=== PATIENT | female | born 1965 | race Caucasian/White ===

== ENCOUNTER 2017-04-23 00:11 | Day surgery (SDC) | payer MEDICARE, MEDICAID ==
[~2017-04-23] VITALS: Ht 157.5 cm; Wt 48.5 kg
[~2017-04-23 00:11] MED LIST: ACET500T68 PO; AMOX-362 PO; AMOX500T10 PO; BACOUD TP; CALC-634 PO; CALC-707 PO; CALC1TAB17 PO; CALC1TAB58 PO; CARB15DR70 OP; CLIN40GE2 TP; DESO1TAB32 PO; DESO1TAB41 PO; DULO60CA51 PO; DULO60CA56 PO; EMOL454O TOP; ESOM40CA42 PO; GOLYTE PO; GUAI-244 PO; HYDR28.415 TP; HYDR28.425 TOP; IBUP200C71 PO; IBUP600T22 PO; LOPE-109 PO; LOPE-84 PO; LORA-629 PO; LORA-787 PO; LOVAZA1PT GT; MAGN1TAB2 PO; MENT118G TD; MENT118G TOP; MET70GEL PV; METR45CR9; NAPR-744 PO; OMEG1CAP60; PAN40 PO; PHEN200T32 PO; POLPT TP; SULF-198 PO; TRAZ-156 PO; TRIA10PO9 MC; TRIC1BAR TP; VITA-200 PO; [UNRECOGNIZED DRUG - CODE] TP; [UNRECOGNIZED DRUG - OTHER] PO
[2017-04-23 06:09] VITALS: BP 117/86
[2017-04-23] MEDS ORDERED: NORMOSOL R SOLN(*) 1000 ML BAG 1,000 ML IV PRN (06:30)
[2017-04-23] MEDS ORDERED: MIDAZOLAM 2 MG/2 ML VIAL IVP PRN (06:30)
[2017-04-23] MEDS ORDERED: LIDOCAINE/SOD BICARB 8.4% SYR ID ONE (06:30)
[2017-04-23] MEDS ORDERED: LIDOCAINE MPF 1% 5 ML VIAL ONE (06:51)
[2017-04-23] MEDS ORDERED: PROPOFOL EMUL(*) 10MG/ML 20 ML 60 ML ONE (06:51)
[2017-04-23 07:52] VITALS: BP 107/72
[2017-04-23 08:00] VITALS: BP 94/61
--- NOTE | 2017-04-23 08:00 | Short(Outpt) Discharge Summary ---
Discharge Summary Reason for Hosp/Final Diag: (1) Colon cancer screening Status: Chronic Hospital Course & Plan: Colonoscopy completed without problems. Departure Discharge to: Assisted Living Discharge Instructions Home Meds Active Scripts Multivits-Min/Fa/Lycopene/Lut (COMPLETE MULTI 50+ TABLET) 1 Each Tablet, 1 EACH PO QDAY, #90 TAB 4 Refills Prov:DOMONIQUE WINTER MD 04/10/17 Peg/Electrolytes (GOLYTELY SOLUTION) 4,000 Ml Soln, 1 GAL PO ONCE, #1 GAL 0 Refills Prov:CATRACHITO GARCIA MD 02/11/17 Loratadine (LORATADINE) 10 Mg Tablet, 10 MG PO QDAY Y for ALLERGY SYMPTOMS, #90 TAB 2 Refills Prov:DOMONIQUE WINTER MD 01/27/17 Calcium Carbonate/Vitamin D3 (CALCIUM 600 + VIT D 400 TABLET) 1 Each Tablet, 1 TAB PO QDAY, #90 TAB 3 Refills Prov:DOMONIQUE WINTER MD 01/06/17 Reported Medications Erythromycin/Benzoyl Peroxide (ERYTHROMYCIN-BENZOYL GEL) 23.3 Gm Gel..gram., 23.3 GM TP 04/16/17 Triclosan (CETAPHIL) 1 Each Bar, 1 EACH TP DAILY 04/16/17 Menthol (BIOFREEZE) 118 Ml Gel..ml., 1 MARYURI TOP PRN 04/16/17 Bacitracin/Polymyxin (BACITRACIN-POLYMYXIN OINTMENT) 0.9 Gm Oint, 0.9 GM TP DAILY 04/16/17 Emollient Combination No.97 (Aquaphilic) 454 Gm Oint...g., 1 MARYURI TOP DAILY 04/16/17 Loperamide Hcl (ANTI-DIARRHEAL) 2 Mg Capsule, 2 MG PO PP, CAPSULE 04/16/17 Magnesium Carbonate/Al Hydrox (ANTACID EXTRA STRENGTH CHW TAB) 1 Each Tab.chew, 2 EACH PO DAILY, TAB.CHEW 04/16/17 Amoxicillin 500 Mg Tab (AMOXICILLIN 500 MG TAB) 500 Mg Tablet, 4 TAB PO DIRECTED, TAB 04/16/17 Acetaminophen (TYLENOL EXTRA STRENGTH) 500 Mg Tablet, 500 MG PO Q4-6H, TAB 04/16/17 Calcium/Mineral/D3/K2/Silicon (ADVANCED CALCIUM FORMULA TAB) 1 Each Tablet, 1 EACH PO DAILY 04/16/17 [place]-3 Acid Ethyl Esters ([place]-3 Acid Ethyl Esters) 1 Gm Capsule 01/02/17 Metronidazole (METRONIDAZOLE) 45 Gm Cream..g. 01/02/17 Trazodone Hcl (TRAZODONE HCL) 50 Mg Tablet, 50 MG PO QHS 10/01/16 Esomeprazole Magnesium (NEXIUM) 40 Mg Capsule.dr, 1 CAP PO QDAY TAKE ONE CAPSULE BY MOUTH EVERY DAY 10/04/13 Ibuprofen (IBUPROFEN) 200 Mg Capsule, 2 CAP PO Q6-8H Y for PAIN, CAPSULE 10/04/13 Hydrocortisone/Aloe Vera (HYDROCORTISONE 1% OINTMENT) 28 Gm Oint...g., 28 GM TP PRN Y for ITCHING 10/04/13 Duloxetine Hcl (CYMBALTA) 60 Mg Capsule.dr, 60 MG PO QDAY, #5 CAP TAKE 1 CAPSULE BY MOUTH EVERY DAY 10/04/13 Discontinued Reported Medications Hydrocortisone (Hydrocortisone) 1 % Cream..g., 1 MARYURI TOP 04/16/17 Desogestrel-Ethinyl Estradiol (RECLIPSEN) 1 Each Tablet, 1 EACH PO QDAY 10/04/13 Diet: Regular Activity: As Tolerated Special Instructions: Your colonoscopy was completed without any problems and your prep was excellent (Good Job!!). Your colon looked completely normal, no polyps, cancers, or other abnormalities. I recommend another colonoscopy in 10 years for screening. CATRACHITO GARCIA MD Apr 23, 2017 07:59
[2017-04-23 08:30] VITALS: BP 114/84
[2017-04-23 08:33] VITALS: BP 106/76
[2017-04-23 08:34] VITALS: BP 109/79
== END 2017-04-23 08:48 | disposition home or self-care (01) ==
LOC: OR 00:11
PROVIDERS: ATTEND Surgery
DX: Z12.11 Encounter for screening for malignant neoplasm of colon (principal)
CPT/HCPCS: 00812; G0121; J2001; J2704

== ENCOUNTER → 2017-06-30 | Outpatient (CLI) | payer MEDICARE, MEDICAID ==
[~2017-06-30] MED LIST changes: -CARB15DR70 OP; +CARB15DR72 OP; +MIRT7.5T2 PO; +MULT1TAB77 PO; +OMEG1CAP60 PO
[2017-06-30 11:02] LABS: PLATELET COUNT, AUTOMATED 235 K/uL (150-450)
== END ==
LOC: LAB 10:33
PROVIDERS: ATTEND Internal Medicine
DX: Q90.9 Down syndrome, unspecified (principal); I34.1 Nonrheumatic mitral (valve) prolapse; Z86.79 Personal history of other diseases of the circulatory system; R63.4 Abnormal weight loss; R71.8 Other abnormality of red blood cells
CPT/HCPCS: 36415; 81001; 82040; 82247; 82310; 82374; 82435; 82565; 82607; 82746; 82947; 84075; 84132; 84155; 84295; 84443; 84450; 84460; 84520; 85025

== ENCOUNTER → 2017-11-21 | Outpatient (CLI) | payer MEDICARE, MEDICAID ==
[~2017-11-21] MED LIST changes: +IBUP-136 PO; -IBUP200C71 PO; -TRAZ-156 PO; +TRAZ50TA34 PO
--- NOTE | 2017-11-21 10:42 | RADIOLOGY IMAGING REPORT ---
FACILITY: [facility] [place] PATIENT NAME: JESS WARD : [id number] MR: [id number] V: [id number] EXAM DATE: [id number] ORDERING PHYSICIAN: RICHARD COTTER TECHNOLOGIST: Odette Jones PROCEDURE:BILATERAL DIGITAL SCREENING MAMMOGRAM WITH CAD ASSISTED INTERPRETATION & 3D TOMOSYNTHESIS COMPARISON:Prior mammograms 11/20/16, 11/20/15, 11/17/14, 11/09/13, 11/04/12, 11/04/11. INDICATIONS:SCREENING FINDINGS: A small amount of fibroglandular tissue is seen throughout the breasts. The parenchymal pattern has remained stable allowing for difference in mammographic technique & patient positioning. There is no evidence of malignant appearing mass, malignant appearing calcifications or other secondary sign of malignancy in either breast. Pacemaker generator projects over the superior posterior aspect Left breast on the Left MLO view. DIAGNOSTIC CATEGORY 1--NEGATIVE. RECOMMENDATIONS: ROUTINE MAMMOGRAM AND CLINICAL EVALUATION. IMPRESSION: BIRADS 1: Negative. No significant abnormality is seen. Dictated by: Shantel Singh M.D. on 11/21/2017 at 10:26 Transcribed by: RENAN on 11/21/2017 at 10:33 Approved by: Shantel Singh M.D. on 11/21/2017 at 10:41 [facility]
== END ==
LOC: MAMO 02:33
PROVIDERS: ATTEND Family Medicine
DX: Z12.31 Encounter for screening mammogram for malignant neoplasm of breast (principal); Z95.0 Presence of cardiac pacemaker
CPT/HCPCS: 77063; 77067

== ENCOUNTER 2018-06-23 09:38 | Emergency (ER) | payer MEDICARE, MEDICAID ==
[~2018-06-23 09:38] MED LIST changes: +CLIN30GE15 TP; +METR45CR10 TP
[2018-06-23] MEDS ORDERED: ICOS1CAP (09:54)
[2018-06-23] MEDS ORDERED: MU V (09:54)
[2018-06-23] MEDS ORDERED: CARB15DR74 (09:54)
--- NOTE | 2018-06-23 10:00 | ER Report ---
History and Physical Time Seen By MD: 09:55 Hx. of Stated Complaint: Pt. having right knee pain with swelling, pain with walking. Pain and swelling started last night. Unknown if patient fell or not. 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 Caregiver providing history. HPI/ROS CHIEF COMPLAINT: Right knee swelling and pain HISTORY OF PRESENT ILLNESS: Patient is a resident of the [facility]; she is brought in by caregiver secondary to some right knee pain and swelling. Patient did receive acetaminophen earlier this morning. It is unclear whether the patient actually had a fall as patient is somewhat of a poor historian. No fevers or chills noted no other complaints. Allergies: Coded Allergies: No Known Drug Allergies (Verified , 06/23/18) Home Meds Active Scripts [place]-3 Acid Ethyl Esters ([place]-3 Acid Ethyl Esters) 1 Gm Capsule, 1 CAP PO BID MDD 2, #90 CAP 4 Refills Prov:DOMONIQUE WINTER MD 03/13/18 Clindamycin Phosphate (CLINDAMYCIN PHOSPHATE) 30 Gm Gel..gram., 1 MARYURI TP DAILY for 30 Days, #1 TUBE 2 Refills Prov:LINDA DE LA GARZA NPC 01/08/18 Metronidazole (METROCREAM) 45 Gm Cream..g., 1 MARYURI TP BID for 30 Days, #1 TUBE 3 Refills Prov:LINDA DE LA GARZA NPC 01/08/18 Esomeprazole Magnesium (NEXIUM) 40 Mg Capsule.dr, 1 CAP PO QDAY, #90 CAP 3 Refills TAKE ONE CAPSULE BY MOUTH EVERY DAY Prov:DOMONIQUE WINTER MD 12/19/17 Mirtazapine (MIRTAZAPINE) 7.5 Mg Tablet, 7.5 MG PO QDAY, #30 TAB 6 Refills Prov:DOMONIQUE WINTER MD 06/30/17 Loratadine (LORATADINE) 10 Mg Tablet, 10 MG PO QDAY PRN for ALLERGY SYMPTOMS, #90 TAB 2 Refills Prov:DOMONIQUE WINTER MD 01/27/17 Calcium Carbonate/Vitamin D3 (CALCIUM 600 + VIT D 400 TABLET) 1 Each Tablet, 1 TAB PO QDAY, #90 TAB 3 Refills Prov:DOMONIQUE WINTER MD 01/06/17 Reported Medications Icosapent Ethyl (VASCEPA) 1 Gm Capsule 06/23/18 Mu-Vits-Min Th/Lycopene/Lutein (A THRU Z SELECT 50+ FORMULA TB) 1 Each Tablet 06/23/18 Carboxymethylcellulos/Glycerin (REFRESH OPTIVE EYE DROPS) 15 Ml Drops 06/23/18 Emollient Combination No.97 (Aquaphilic) 454 Gm Oint...g., 1 MARYURI TOP DAILY 04/16/17 Duloxetine Hcl (CYMBALTA) 60 Mg Capsule.dr, 30 MG PO QDAY, #5 CAP TAKE 1 CAPSULE BY MOUTH EVERY DAY 10/04/13 Discontinued Reported Medications Erythromycin/Benzoyl Peroxide (ERYTHROMYCIN-BENZOYL GEL) 23.3 Gm Gel..gram., 23.3 GM TP 04/16/17 Bacitracin/Polymyxin (BACITRACIN-POLYMYXIN OINTMENT) 0.9 Gm Oint, 0.9 GM TP DAILY 04/16/17 Amoxicillin 500 Mg Tab (AMOXICILLIN 500 MG TAB) 500 Mg Tablet, 4 TAB PO DIRECTED, TAB 04/16/17 Acetaminophen (TYLENOL EXTRA STRENGTH) 500 Mg Tablet, 500 MG PO Q4-6H, TAB 04/16/17 Calcium/Mineral/D3/K2/Silicon (ADVANCED CALCIUM FORMULA TAB) 1 Each Tablet, 1 EACH PO DAILY 04/16/17 Discontinued Scripts Multivitamin/Iron/Folic Acid (A THRU Z ADVANCED FORMULA TAB) 1 Each Tablet, 1 EACH PO DAILY, #90 TAB 2 Refills Prov:LINDA DE LA GARZA NPC 03/09/18 Past Medical/Surgical History Noncontributory towards this chief complaints. Hx Smoking: No Smoking Status: Never Smoker Exposure to Second Hand Smoke?: No Hx Substance Use Disorder: No Hx Alcohol Use: No Constitutional Vital Sign - Last 24 Hours 06/23/18 06/23/18 06/23/18 06/23/18 09:42 09:45 09:48 09:53 Temp 98.4 Pulse 80 69 70 Resp 16 B/P (MAP) 137/78 137/78 (97) Pulse Ox 96 94 97 O2 Delivery Room Air 06/23/18 06/23/18 06/23/18 06/23/18 09:58 10:00 10:03 10:23 Pulse 70 70 71 B/P (MAP) 120/77 (91) Pulse Ox 94 94 92 06/23/18 06/23/18 06/23/18 06/23/18 10:28 10:30 10:33 10:38 Pulse 70 70 70 B/P (MAP) 117/74 (88) Pulse Ox 91 91 90 06/23/18 10:43 Pulse 70 Pulse Ox 90 Physical Exam General appearance: Alert no distress. Right knee: There is no mild joint swelling swelling. There is no effusion. No overlying erythema There is no obvious deformity of the knee. There is no tenderness to the patella. The joint is stable with no comparable ligamentous laxity to the knee. There is no tenderness proximal or distal to the knee. Neurologic exam: The patient has normal sensation distal to the injury. Vascular exam: Normal pulses and capillary refill in the foot [ ] DIFFERENTIAL DIAGNOSIS: After history and physical exam differential diagnosis was considered for knee injury including sprain, fracture, meniscus injury and soft tissue injury. Medical Decision Making EKG/Imaging Imaging FACILITY: [facility] PATIENT NAME: Lyudmila Summers : 1965 MR: [id number] V: [id number] EXAM DATE: ORDERING PHYSICIAN: KASIE RAMÍREZ TECHNOLOGIST: Location[place] [facility] [place] Patient: Lyudmila Summers : 1965 Visit/Account:[id number] Date of Sevice: 06/23/2018 KNEE 3 VIEW RIGHT Given history: swelling COMPARISON STUDIES: NONE FINDINGS: Osseous structures: Intact without evidence of fracture . Joints: Joint spaces well-maintained. However, there are small osteophytes in the femoral patellar and medial compartments minimally changed from 2016. There is been interval development of several additional intra-articular loose bodies in the posterior aspect of the joint. Calcification seen just medial to the tibial plateau might represent calcification or adjacent loose body by the medial collateral ligament. Soft tissues: There is a large suprapatellar joint effusion. Joint effusion is also seen in 2016. IMPRESSION: Moderate arthropathy with several intra-articular loose bodies . Accompanying joint effusion. Report Dictated By: Anam Mccauley MD at 06/23/2018 10:24 AM Report E-Signed By: Anam Mccauley MD at 06/23/2018 10:27 AM ED Course/Re-evaluation ED Course Plan at this time will be to perform x-ray of the right knee. Decision to Disposition Date: Jun 23, 2018 Decision to Disposition Time: 10:42 Depart Departure Latest Vital Signs Vital Signs Date Time Temp Pulse Resp B/P (MAP) Pulse Ox O2 Delivery O2 Flow Rate FiO2 06/23/18 10:43 70 90 06/23/18 10:30 117/74 (88) 06/23/18 09:42 98.4 16 Room Air Impression: Primary Impression: Arthritis Condition: Improved Disposition: HOME OR SELF-CARE Referrals: [facility] Make an appointment for further evaluation of knee swelling Patient Instructions: Arthritis (GEN), Knee Pain (ED) KASIE RAMÍREZ MD Jun 23, 2018 10:00
[2018-06-23 10:30] VITALS: BP 117/74
--- NOTE | 2018-06-23 10:31 | RADIOLOGY IMAGING REPORT ---
FACILITY: [facility] PATIENT NAME: Lyudmila Summers : 1965 MR: [id number] V: [id number] EXAM DATE: ORDERING PHYSICIAN: KASIE RAMÍREZ TECHNOLOGIST: Location: [facility] Patient: Lyudmila Summers : 1965 Visit/Account:[id number] Date of Sevice: 06/23/2018 KNEE 3 VIEW RIGHT Given history: swelling COMPARISON STUDIES: NONE FINDINGS: Osseous structures: Intact without evidence of fracture . Joints: Joint spaces well-maintained. However, there are small osteophytes in the femoral patellar and medial compartments minimally changed from 2016. There is been interval development of several additional intra-articular loose bodies in the posterior aspect of the joint. Calcification seen just medial to the tibial plateau might represent calcification or adjacent loose body by the medial collateral ligament. Soft tissues: There is a large suprapatellar joint effusion. Joint effusion is also seen in 2016. IMPRESSION: Moderate arthropathy with several intra-articular loose bodies . Accompanying joint effusion. Report Dictated By: Anam Mccauley MD at 06/23/2018 10:24 AM Report E-Signed By: Anam Mccauley MD at 06/23/2018 10:27 AM WSN:GEO
== END 2018-06-23 11:04 | disposition home or self-care (01) ==
LOC: ER 09:59
DX: M17.11 Unilateral primary osteoarthritis, right knee (principal)
CPT/HCPCS: 99283

== ENCOUNTER → 2018-07-22 | Outpatient (CLI) | payer MEDICARE, MEDICAID ==
[~2018-07-22] MED LIST changes: +CARB15DR74; +ICOS1CAP; +MU V
== END ==
LOC: US 00:29
PROVIDERS: ATTEND Internal Medicine
DX: I36.1 Nonrheumatic tricuspid (valve) insufficiency (principal); Q25.0 Patent ductus arteriosus
CPT/HCPCS: 93306

== ENCOUNTER 2018-11-09 03:13 | Day surgery (SDC) | payer MEDICARE, MEDICAID ==
[~2018-11-09] VITALS: Ht 160 cm; Wt 50.3 kg
[~2018-11-09 03:13] MED LIST changes: +CALC300T21 PO; +HYDR453.8 TP; +IBUP-56 PO; +POLY1DRO10 OP; -TRAZ50TA34 PO; +TRAZ50TA52 PO; +TRIA15OI20 TP
[2018-11-09] MEDS ORDERED: CELECOXIB 200 MG CAP PO ONE (11:15)
[2018-11-09] MEDS ORDERED: ceFAZolin(*) 1 GM VIAL 1 GM in NS(*) 0.9% 100 ML MINI-BAG 100 ML IVPB ONE (11:15)
[2018-11-09] MEDS ORDERED: LIDOCAINE/SOD BICARB 8.4% SYR ID ONE (11:15)
[2018-11-09] MEDS ORDERED: MIDAZOLAM 2 MG/2 ML VIAL IVP PRN (11:15)
[2018-11-09] MEDS: NORMOSOL R SOLN(*) 1000 ML BAG 1,000 ML IV PRN ×2 (13:07→15:22)
[2018-11-09 13:08] VITALS: BP 133/89
[2018-11-09] MEDS ORDERED: ROPIVACAINE 0.2% 20 ML VIAL ONE (13:44)
[2018-11-09] MEDS ORDERED: PROPOFOL EMUL(*) 10MG/ML 20 ML 80 ML ONE (14:18)
[2018-11-09] MEDS ORDERED: PROPOFOL EMUL(*) 10MG/ML 20 ML 20 ML ONE (14:18)
[2018-11-09] MEDS ORDERED: ONDANSETRON 4 MG/2 ML VIAL ONE ×2 (14:18→15:23)
[2018-11-09] MEDS ORDERED: fentaNYL CITR 100 MCG/2 ML AMP ONE (14:18)
[2018-11-09] MEDS ORDERED: DEXAMETHASONE SOD PHOS 10MG/ML ONE (14:18)
[2018-11-09] MEDS ORDERED: traMADol 50 MG TAB ONE (15:47)
[2018-11-09 15:50] VITALS: BP 115/70
[2018-11-09 16:00] VITALS: BP 107/75
[2018-11-09] MEDS ORDERED: LACTATED RINGER 3000 ML BAG IR ONE (16:13)
[2018-11-09] MEDS ORDERED: TRAM-420 PO (16:14)
--- NOTE | 2018-11-10 05:29 | OPERATIVE REPORT 1 ---
EVENT DATE: November 09, 2018 SURGEON: Lee Brantley MD ANESTHESIOLOGIST: Andre Schumacher MD ANESTHESIA: General. BOARD FILLER: William Suero PA-C PREOPERATIVE DIAGNOSES 1. Right knee medial meniscus tear. 2. Patellofemoral chondromalacia. POSTOPERATIVE DIAGNOSES 1. Right knee posterior horn of medial and lateral meniscus degenerative tearing. 2. Partial tearing of the anterior-inferior bundle of the posterior cruciate ligament. 3. 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 4. Unstable lateral patella osteophyte. PROCEDURE PERFORMED 1. Right knee arthroscopy with partial medial and lateral meniscectomies. 2. Debridement of posterior cruciate ligament degenerative partial tear. 3. Debridement of patellofemoral chondromalacia. 4. Debridement of the lateral unstable patella osteophyte. IMPLANTS None. SPECIMENS None. COMPLICATIONS None. BLOOD LOSS Minimal. DESCRIPTION OF PROCEDURE Patient received appropriate preoperative antibiotics and was brought to the OR, where Dr. Schumacher performed general anesthesia. A right thigh tourniquet was placed. The right lower extremity was prepped and draped in the usual sterile fashion. The limb was exsanguinated. The tourniquet was inflated to 250 mmHg. A lateral portal was established, followed by medial. Noted mildly prominent medial spine. The cartilage appeared to be grossly intact in medial femoral condyle and medial tibial plateau, but there was degenerative tearing in the posterior horn, which was debrided with the shaver. Notch showed intact ACL, but PCL showed some anterior-posterior degenerative tearing. This was debrided with the shaver. Lateral compartment was entered. There was a posterior horn tear of a degenerative nature, and this was debrided with the shaver. Remaining articular cartilage was intact. Patellofemoral compartment was entered. The lateral aspect of the medial trochlea and the medial patella showed grade 3 changes. The lateral patella and lateral trochlea showed grade 4 changes. There was an unstable osteophyte off the lateral patella. Patellofemoral chondromalacia margins were debrided down to stable base with the shaver. The patella osteophyte was removed with the shaver in the bur mode of the shaver. Instrumentation was removed. The portals were closed subcutaneously with 4-0 Monocryl followed by Steri-Strips, injection of the portals and joint with ropivacaine, followed by compressive dressing. The patient was extubated and taken to Recovery in stable condition. Tylenol, ibuprofen and tramadol are recommended for pain. Dressing is to be changed in two days. She is to start protocol therapy. We will see her next week in [place] [facility]. SPENCER
== END 2018-11-09 15:50 | disposition home or self-care (01) ==
LOC: OR 03:13
PROVIDERS: ATTEND Orthopaedic Surgery
DX: S83.241A Other tear of medial meniscus, current injury, right knee, initial encounter (principal); M94.28 Chondromalacia, other site
CPT/HCPCS: 29880; A9270; J0690; J1100; J2250; J2405; J2704; J2795; J3010